=== PATIENT | female | born 1985 | race Caucasian/White ===

== ENCOUNTER 2022-10-20 16:18 | Emergency (ER) | payer BC ==
[~2022-10-20] VITALS: Ht 165.1 cm; Wt 50.0 kg
[2022-10-20 17:17] LABS: BASOPHILS % (AUTO) 0.6 % (0-1); EOSINOPHILS % (AUTO) 0.1 % (0-6); HEMOGLOBIN 11.7 g/dl (12.0-16.0); LYMPHOCYTES # (AUTO) 0.7 X10'3 (1.1-4.8); LYMPHOCYTES % (AUTO) 9.7 % (21-51); MEAN CORPUSCULAR HEMOGLOBIN 31.7 PG (27.0-31.0); MEAN CORPUSCULAR HGB CONC 33.4 g/dL (33.0-36.5); MONOCYTES # (AUTO) 0.4 X10'3 (0-0.9); MONOCYTES % (AUTO) 6.5 % (2-12); NEUTROPHILS # (AUTO) 5.6 X10'3 (1.8-7.7); NEUTROPHILS % (AUTO) 83.1 % (42-75); PLATELET COUNT 161 X10'3 (140-440); RED BLOOD COUNT 3.69 X10'6 (4.20-5.60); WHITE BLOOD COUNT 6.7 X10'3 (4.5-11.0)
[2022-10-20 17:39] LABS: ALANINE AMINOTRANSFERASE 22 U/L (12-78); ALBUMIN 3.4 G/DL (3.4-5.0); ALBUMIN/GLOBULIN RATIO 1.1 (1.1-1.5); ALKALINE PHOSPHATASE 43 IU/L (46-116); ANION GAP 10 (8-16); ASPARTATE AMINO TRANSFERASE 26 U/L (10-37); BILIRUBIN,TOTAL 0.2 MG/DL (0.1-1.0); BLOOD UREA NITROGEN 8 MG/DL (7-18); BUN/CREATININE RATIO 13.8 (6.6-38.0); CALCIUM 8.4 MG/DL (8.5-10.1); CHLORIDE 98 MMOL/L (99-107); CREATININE 0.58 MG/DL (0.40-0.90); GLUCOSE 113 MG/DL (70-104); POTASSIUM 3.5 MMOL/L (3.5-5.1); SODIUM 131 MMOL/L (135-145); TOTAL CARBON DIOXIDE 22.6 MMOL/L (24-32); TOTAL PROTEIN 6.6 G/DL (6.4-8.2); eGFR > 90 ML/MIN
[2022-10-20 17:50] LABS: UA COLLECTION TYPE CLN CATCH MIDSTREAM
[2022-10-20 17:51] LABS: CLARITY,URINE BLOODY (Clear); COLOR,URINE RED (Yellow)
[2022-10-20 18:20] LABS: BETA HCG,QUANTITATIVE 10624 mIU/ml
[2022-10-20 18:37] LABS: BACTERIA,URINE NONE SEEN /HPF (Neg); RBC,URINE TNTC /HPF (0-2); SQUAMOUS EPITHELIAL CELL,UR NONE SEEN /LPF (FEW); WBC,URINE NONE SEEN /HPF (0-4)
[2022-10-20] MEDS ORDERED: ondansetron/PF 4mg/2ml inj IV ONE ×2 (19:05→21:40)
[2022-10-20] MEDS ORDERED: vancomycin/NS 1 GM ADD-VANTAGE 250 ML IV ONE (19:05)
[2022-10-20] MEDS ORDERED: CefTRIAXone 2gm/D5W 50ml BAG 50 ML IV ONE (19:05)
[2022-10-20] MEDS ORDERED: morphine 4 MG/ML inj SYRINge IV ONE (19:05)
[2022-10-20] MEDS ORDERED: normal saline 1000ML IV soln IV ONE (19:05)
[2022-10-20 19:24] LABS: MAGNESIUM 1.7 MG/DL (1.5-2.4)
[2022-10-20] MEDS ORDERED: morphine 4 MG/ML inj SYRINge IV STA (21:05)
--- NOTE | 2022-10-20 21:06 | NUR ---
moderate saturated pad with quarter size clot. Cramping [employer] made aware.
[2022-10-20 22:24] VITALS: BP 97/52
--- NOTE | 2022-10-20 22:29 | NUR ---
Report called to Marcelina Crowley accepts report. Bedside report given to [facility]. Patient departs in stable condition at this time.
== END 2022-10-20 22:33 | disposition short-term general hospital (02) ==
LOC: ER 16:19
DX: O03.4 Incomplete spontaneous abortion without complication (principal); Z20.822 Contact with and (suspected) exposure to COVID-19; F32.9 Major depressive disorder, single episode, unspecified; Z90.49 Acquired absence of other specified parts of digestive tract; Z3A.08 8 weeks gestation of pregnancy
CPT/HCPCS: 36415; 76801; 80053; 81001; 83605; 83735; 84145; 84702; 85025; 87040; 87811; 96365; 96368; 96375; 96376; 99285; J0696; J2270; J2405; J3370; J7030